=== PATIENT | female | born 2005 | race Caucasian/White ===

== ENCOUNTER 2024-04-22 11:48 | Emergency (ER) | payer SELFPAY ==
[~2024-04-22] VITALS: Ht 149.9 cm; Wt 63.8 kg
[2024-04-22 12:26] LABS: Urine Bacteria FEW /hpf (None Seen); Urine Blood Negative /uL (Negative); Urine Clarity Turbid (Clear); Urine Color Yellow (Yellow); Urine Mucus FEW (None Seen); Urine Protein, UAD 1+ (Negative); Urine Specific Gravity 1.031 (1.001-1.035); Urine Urobilinogen 4 mg/dL (Negative); Urine WBC 4 /hpf (0 - 5); Urine pH 6.5 (5.0-9.0)
[2024-04-22] MEDS: PROMETHAZINE HCL 6.25 MG/5 ML ORAL SYRUP PO ONE (14:22)
[2024-04-22] MEDS ORDERED: CEPH250C PO (14:29)
[2024-04-22 15:04] VITALS: BP 124/71; PULSE 90; RESP 18; TEMP 98; O2SAT 100
== END 2024-04-22 15:06 | disposition home or self-care (01) ==
LOC: ER 11:48
DX: O23.41 Unspecified infection of urinary tract in pregnancy, first trimester (principal); R10.2 Pelvic and perineal pain; Z3A.13 13 weeks gestation of pregnancy
CPT/HCPCS: 36415; 76801; 81001; 84702